=== PATIENT | male | born 1955 | race Two or more races ===

== ENCOUNTER 2018-06-30 12:25 | Inpatient (IN) | payer OTHER ==
[~2018-06-30] VITALS: Ht 185.4 cm; Wt 149.2 kg
--- NOTE | 2018-06-30 12:34 | NUR ---
TO TX AREA VIA W/C.
--- NOTE | 2018-06-30 12:35 | NUR ---
PT BROUGHT IN BY SELF WITH C/O ABDOMINAL PAIN AND POSSIBLE CONSTIPATION. AT BEDSIDE PT IS AAOX4. RESPS E/U. SKIN IS PINK, WARM AND DRY. PERRLA. PT PLACED ON MONITOR. BED RAILS UP X1 FOR SAFETY. PT ORIENTED TO ROOM, USE OF CALL LEIVA AND BED IN LOWEST POSITION. PT IS CALM AND COOPERATIVE. PT AMBULATED FROM LOBBY TO ED WITH STEADY GAIT.
--- NOTE | 2018-06-30 12:37 | NUR ---
ED PHYSICIAN AT BEDSIDE FOR PATIENT EVALUATION. MEDICAL SCREENING EXAMINATION COMPLETED BY ED PHYSICIAN DR. CAMPOS.
--- NOTE | 2018-06-30 12:50 | NUR ---
TO CT VIA [facility].
--- NOTE | 2018-06-30 13:03 | NUR ---
BACK FROM CT.
[2018-06-30 13:07] LABS: PLATELET COUNT 339 x10^3mcL (130-400)
[2018-06-30 13:32] LABS: CALCIUM 8.5 mg/dL (8.5-10.1); CARBON DIOXIDE 27.1 mmol/L (21-32); CREATININE SERUM 1.8 mg/dL (0.7-1.3)
[2018-06-30 13:38] LABS: BILIRUBIN TOTAL 1.05 mg/dL (0.20-1.00); RED CELL DISTRIBUTION WIDTH 17.3 % (11.5-14.5)
[2018-06-30 13:40] LABS: ALBUMIN 3.3 g/dL (3.4-5.0); TOTAL PROTEIN, SERUM 8.3 g/dL (6.4-8.2)
[2018-06-30 14:10] LABS: BAND NEUTROPHIL 4 % (0-10); MONOCYTE 8 % (0-7); SEGMENTED NEUTROPHILS 79 % (37-75)
[2018-06-30 14:11] LABS: PLATELET MORPHOLOGY PLATELETS NORMAL; rbc morphology (normal/abnorm) NORMAL (NORMAL)
--- NOTE | 2018-06-30 14:19 | NUR ---
1ST BOLUS OF 2 COMPLETE BP NOW 133/76 AM=186 SP02 96% ON RA. 2ND BOLUS STARTED.
--- NOTE | 2018-06-30 14:28 | NUR ---
PT OR DO NOT RECALL MEDS FOR MED REC HE STATES "I TAKE ONE TO PEE."
[2018-06-30 15:33] LABS: MAGNESIUM 1.6 mg/dL (1.8-2.4); PHOSPHOROUS 2.4 mg/dL (2.5-4.9)
--- NOTE | 2018-06-30 15:42 | NUR ---
PT IS STILL UNABLE TO VOID. PT RESTING IN POSITION OF COMFORT.
--- NOTE | 2018-06-30 15:45 | NUR ---
REPORT HAND-OFF TO RN EVERETTIN ON TELE UNIT TO ASSUME CARE.
--- NOTE | 2018-06-30 16:00 | NUR ---
RECEIVED PT FROM ED VIA [facility], CAME IN DUE TO ABDOMINAL PAIN X3 DAYS AND DIARRHEAL EPISODE. AAOX4. DENIES HEADACHE/DIZZINESS. ABLE TO FOLLOW COMMANDS. MILD SOB NOTED, O2 SAT=95%, RA. WHEEZES NOTED ON THE RIGHT SIDE OF THE LUNG. DENIES CHEST PAIN/PRESSURE, SINUS TACHYCARDIA ON THE MONITOR, HR AT 120. C/O 8/10 RIGHT ABDOMINAL PAIN DESCRIBED SHARP. LAST BM TODAY=DIARRHEA. ABDOMEN IS DISTENDED AND FIRM. BOWEL SOUNDS ACTIVE. ABLE TO PASS GAS. VOIDS FREELY. IV SITES ON THE LEFT HAND AND RAC ARE PATENT AND INTACT. SIDE RAILS UPX2. CALL LIGHT ON REACH. BEDSIDE REPORT GIVEN TO PRIMARY NURSE EVERETTIN FOR CONTINUITY OF CARE
[2018-06-30 16:07] VITALS: BP 109/84
--- NOTE | 2018-06-30 16:27 | NUR ---
STATED ABDOMINAL PAIN IS 8/10 ON PAIN SCALE, MORPHINE 2MG IVP GIVEN, NO ADVERSE REACTION NOTED. IVF NS INFUSING WELL TO LT HAND IV SITE. S/L TO RAC PATENT AND INTACT. KEPT NPO, PATIENT MADE AWARE. URINAL AT BEDSIDE PROVIDED. CALL LIGHT PLACED WITHIN EASY REACH, SIDERAILS UP X2.
[2018-06-30] MEDS ORDERED: FLO4 PO (17:38)
[2018-06-30] MEDS ORDERED: LISINOPRIL40 MG PO (17:39)
--- NOTE | 2018-06-30 17:52 | NUR ---
DOCTOR PASCALE BLANKENSHIP AT BEDSIDE STATED THAT SURGERY WILL BE DONE TONIGHT. PATIENT AND PATIENT'S SPOUSE VERBALIZED UNDERSTANDING.
--- NOTE | 2018-06-30 18:00 | NUR ---
EVELINE BENITEZ PROVIDED, ASSISTED BY PATIENT'S SPOUSE. CONSENT FOR LAPAROSCOPIC POSSIBLE OPEN CHOLECHYSTECTOMY, POSSIBLE CHOLANGIOGRAM SIGNED BY PATIENT WHO IS AWAKE, ALERT, ORIENTED TO PERSON, PLACE, TIME AND SITUATION.
[2018-06-30 18:26] LABS: UA SPECIFIC GRAVITY 1.015 (1.005-1.035); microscopic required? YES
[2018-06-30 18:27] LABS: urine erythrocyte NEGATIVE (NEGATIVE)
[2018-06-30 18:34] LABS: AMPHETAMINE QUAL UR NONE DETECTED (See below)
--- NOTE | 2018-06-30 18:34 | NUR ---
REPORT GIVEN VIA PHONE TO OR NURSE.
--- NOTE | 2018-06-30 18:52 | NUR ---
OFF FLOOR TO OR.
--- NOTE | 2018-06-30 19:15 | NUR ---
RECEIVED REPORT FROM PREVIOUS SHIFT NURSE. PT CURRENTLY IN OR FOR PROCUEDURE. WILL ASSUME CARE UPON PT ARRIVAL.
--- NOTE | 2018-06-30 21:20 | NUR ---
RECEIVED CALL FROM OR THAT PT WILL BE TRANSFERRED TO ICU.
[2018-06-30 21:40] VITALS: BP 188/99
--- NOTE | 2018-06-30 21:40 | NUR ---
RECEIVED PATIENT FROM OR ACCOMPANIED BY DR. WEI AND OR NURSE, S/P LEILA HALLMAN, INTUBATED. JOAQUIN DRAIN NOTED ON THE RIGHT UPPER QUAD, WITH FOUR SURGICAL WOUNDS COVERED WITH LARGE BANDAGES, NO VISIBLE EVIDENCE OF BLEEDING, PATIENT IS DROWSY, PANDEY CATHETER WITH SCANT URINE OUTPUT,IVF NS AT 100ML PER HOUR, PATIENT IS PROFUSELY SWEATING, PERIPHERAL IV SITE PATENT AND INTACT.
[2018-06-30 22:00] VITALS: BP 153/112; BP 188/99
--- NOTE | 2018-06-30 22:03 | NUR ---
PROPOFOL GTT INITIATED AT THIS TIME @ 10 MCG/KG/MIN TO ACHIEVE RSS=4. PT RSS=1 AT THIS TIME.
--- NOTE | 2018-06-30 22:19 | NUR ---
PROPOFOL TITRATED TO 15 MCG/KG/MIN. RSS=1 AT THIS TIME, PT EYES OPEN, ARMS MOVING.
--- NOTE | 2018-06-30 22:50 | NUR ---
PROPOFOL TITRATED TO 20 MCG/KG/MIN, RSS=1 AT THIS TIME, PT AWAKE, EYES OPEN AND ARMS MOVING AGAINST SIDE RAILS.
--- NOTE | 2018-06-30 22:54 | NUR ---
FIO2 DECREASED TO 30% ON THE VENT SETTING.
--- NOTE | 2018-06-30 23:10 | NUR ---
IVF RATE CHANGED TO 130ML/HR ORDERED.
[2018-06-30 23:25] LABS: BILIRUBIN TOTAL 1.11 mg/dL (0.20-1.00); CALCIUM 7.4 mg/dL (8.5-10.1); CARBON DIOXIDE 23.9 mmol/L (21-32); CREATININE SERUM 2.4 mg/dL (0.7-1.3); POTASSIUM SERUM 4.9 mmol/L (3.5-5.1); TOTAL PROTEIN, SERUM 7.5 g/dL (6.4-8.2)
[2018-06-30 23:27] LABS: ALBUMIN 2.8 g/dL (3.4-5.0)
[2018-07-01] VITALS (18 sets, daily range): BP systolic 102–137; BP diastolic 60–85; Ht 185.4 cm; Wt 149.2 kg
--- NOTE | 2018-07-01 00:36 | NUR ---
REMAINED INTUBATED, AROUSABLE, PROPOFOL AT 20MCG/KG/MIN, UVF INFUSING AT 130 ML/HR, URINE OUTPUT REMAINED SCANT, JOAQUIN DRAIN WITH SEROSANGUINOUS DRAINAGE, VITAL SIGNS STABLE.
--- NOTE | 2018-07-01 04:56 | NUR ---
PATIENT COMPLAINED OF SHARP PAIN IN THE ABDOMINAL AREA. MEDICATED WITH DILAUDID 1 MG AT 0417. VITAL SIGNS REMAINED STABLE, AROUSABLE, URINE OUTPUT IS ABOUT 30ML/HR, JOAQUIN DRAIN IS MINIMAL, SEROSANGUINOUS, NO BLEEDIMG FROM THE SURGICAL SITES.
[2018-07-01 05:05] LABS: BASOPHIL % 0.5 % (0-2); PLATELET COUNT 284 x10^3mcL (130-400)
[2018-07-01 05:06] LABS: RED CELL DISTRIBUTION WIDTH 15.9 % (11.5-14.5)
[2018-07-01 05:19] LABS: MAGNESIUM 1.7 mg/dL (1.8-2.4); PHOSPHOROUS 3.5 mg/dL (2.5-4.9)
--- NOTE | 2018-07-01 07:22 | NUR ---
BEDSIDE REPORT GIVEN TO DAY NURSE, ALL CONCERNS ADDRESSED.
--- NOTE | 2018-07-01 07:26 | NUR ---
RECEIVED PT FROM LEAVING NURSE. PT IS INTUBATED ON PCV MODE. PT IS SEDATED ON PROPOFOL AT 20MCG/KG/MIN. PT HAD JOAQUIN DRAIN IN PLACE, SERO SANGUNEOUS DRAINAGE. PANDEY IN PLACE, DRAINING FREELY VIA GRAVITY. URINE COLOR TABITHA. IV NS IS INFUSING AT 130ML/HR. PT'S AT BED SIDE.
--- NOTE | 2018-07-01 08:20 | NUR ---
PROVIDED VAP CARE TO PT, BITE BLOCK REMOVED, EDUCATED PT TO NOT BITE ON ETT TUBE, PT GESTURED UNDERSTANDING. PER DR. WHITESIDE TO INCREASE PROPOFOL TO ACHIEVE RSS 4. INCREASED PROPOFOL FROM 20MCG/KG/MIN TO 30MCG/KG/MIN TO ACHIEVE RSS4.
--- NOTE | 2018-07-01 08:22 | NUR ---
PER DR WHITESIDE CHANGED RR TO 16, PEEP TO 5, AND IPS TO 30. WILL MONITOR.
--- NOTE | 2018-07-01 08:33 | NUR ---
OGT PLACED AT THIS TIME. AIR BOLUS AUSCULTATED AND KUB ORDERED FOR CONFIRMATION. PT TOLERATED WELL.
--- NOTE | 2018-07-01 08:50 | NUR ---
CXR AT BEDSIDE.
--- NOTE | 2018-07-01 08:57 | NUR ---
SPOKE WITH DR. RODGERS AND UPDATED ON PT'S PROGRESS THROUGH STRIKE OUT MACHINE OPERATOR. UPDATED ON LABS AND JOAQUIN DRAIN OUTPUT. NO NEW ORDERS AT THIS TIME
--- NOTE | 2018-07-01 09:30 | NUR ---
DR. KELLY, RESIDENTS AND QUALITY AND RELIABILITY ENGINEER AT BEDSIDE FOR ROUNDING. STATUS UPDATES PROVIDED AND QUESTIONS ADDRESSED.
--- NOTE | 2018-07-01 10:10 | NUR ---
PER DR. WHITESIDE TO DECREASE SEDATION TO PREPARE FOR CPAP, LOWERED PROPOFOL TO 20MCGG/KG/MIN. WILL CONTINUE TO MONITOR.
--- NOTE | 2018-07-01 10:32 | NUR ---
PT IS NOT ABLE TO FOLLOW VERBAL COMMANDS, LOWERED SEDATION TO 10MCG/KG/MIN TO ACHIEVE RSS 4 FOR CPAP.
--- NOTE | 2018-07-01 11:14 | NUR ---
PT IS UNABLE TO TOLERATE WEANING ON CPAP. RT SWITCHED PT BACK TO VENT PCV MODE. PT IS AWAKE, FOLLOW SIMPLE COMMAND. PT'S AT BED SIDE. PROPOFOL INFUSING AT 10MCG/KG/MIN.
--- NOTE | 2018-07-01 11:19 | NUR ---
TRIED CPAP TRIAL PT UNABLE TO TOLERATED. WILL MONITOR.
--- NOTE | 2018-07-01 11:41 | NUR ---
PT IS MORE AWAKE, INCREASE PROPOFOL TO 20MCG/KG/JERAD. PT'S AT BED SIDE.
--- NOTE | 2018-07-01 12:58 | NUR ---
PT IS AWAKE, ALERT, AND GESTURED COMMUNICATE AND MAKE HIS NEEDS KNOW. INCREASED PT'S SEDATION PROPOFOL TO 30MCG/KG/MIN.
--- NOTE | 2018-07-01 18:00 | NUR ---
VITAL AF 1.2 SET AT 10ML/HR FWF 100ML/ Q6HRS PER ORDER.
--- NOTE | 2018-07-01 18:15 | NUR ---
PT'S RSS 3, PROPOFOL AT 20MCG/KG/MIN INCREASED PROPOFOL TO 30MCG/KG/MIN TO ACHIEVE RSS4.
--- NOTE | 2018-07-01 19:19 | NUR ---
RECEIVED REPORT FROM DALE GRANADOS FOR CONTINUITY OF CARE. ALL QUESTIONS AND CONERNS ADDRESSED. PT IS SEDATED AND INTUBATED ON PROPOFOL AT 30 MCG/KG/MIN. PT BREATHING IS E/U ON VENT. ASSESSMENT TO FOLLOW.
--- NOTE | 2018-07-01 19:32 | NUR ---
REPORT GIVEN TO COMING NURSE. PT'S AT BED SIDE. START PT ON TUBE FEEDING VITAL AF 1.2 10ML/HR WFW 100 Q6H. QUESTIONS AND CONCERNS ANSWERED.
--- NOTE | 2018-07-01 21:40 | NUR ---
RT AT BEDSIDE PROVIDING BREATHING TREATMENT.
--- NOTE | 2018-07-01 23:24 | NUR ---
PT C/O OF ABDOMINAL PAIN. 08/10. WILL MEDICATE PER EMAR.
[2018-07-02] VITALS (13 sets, daily range): BP systolic 110–161; BP diastolic 60–94
--- NOTE | 2018-07-02 01:40 | NUR ---
VITAL AF INFUSION ADVANCED FROM 10 ML/HR TO 20 ML/HR
--- NOTE | 2018-07-02 02:31 | NUR ---
PT HAD MODERATE LOOSE BM. PT CLEANED AND LINENS CHANGED.
--- NOTE | 2018-07-02 03:40 | NUR ---
RT AT BEDSIDE PROVIDING BREATHING TREATMENT.
--- NOTE | 2018-07-02 04:19 | NUR ---
PT MOVED ARM AND IV WAS PULLED OUT FROM RIGHT FA.
[2018-07-02 05:22] LABS: CALCIUM 7.4 mg/dL (8.5-10.1); CARBON DIOXIDE 23.4 mmol/L (21-32); CREATININE SERUM 1.9 mg/dL (0.7-1.3); MAGNESIUM 2.1 mg/dL (1.8-2.4); PHOSPHOROUS 3.4 mg/dL (2.5-4.9); POTASSIUM SERUM 3.7 mmol/L (3.5-5.1)
[2018-07-02 05:32] LABS: BASOPHIL % 0.1 % (0-2); PLATELET COUNT 258 x10^3mcL (130-400); RED CELL DISTRIBUTION WIDTH 17.4 % (11.5-14.5)
--- NOTE | 2018-07-02 06:06 | NUR ---
PROPOFOL TITRATED FROM 30 MCG/KG/MIN TO 25 MCG/KG/MIN.
--- NOTE | 2018-07-02 07:00 | NUR ---
PROPOFOL TITRATED TO 30 MCG/KG/MIN
--- NOTE | 2018-07-02 07:21 | NUR ---
TUBE FEEDING ADVANCED TO 30 ML/HR
--- NOTE | 2018-07-02 07:24 | NUR ---
REPORT GIVEN TO DALE CARY FOR CONTINUITY OF CARE. ALL QUESTIONS AND CONCERNS ADDRESSSED.
--- NOTE | 2018-07-02 07:30 | NUR ---
THE PATIENT REMAINED INTUBATED AND SEDATED WITH PROPOFOL AT 30MCG/KG/MIN. THE PATIENT RESPONSIVE TO COMMANDS AND GESUTRED TO MAKE NEEDS KNOWN. SHELLEY PUPILS WITH BRISK REACTION TO LIGHT. ETT 7.5 WAS SECURED AT 23CM AT LIPLINE. OGT WAS IN PLACE AND SECURED TO ETT. OGT PLACEMENT WAS VERIFIED WITH SOME AIR BOLUS. ORAL CARE WAS PROVIDED TO THE PATIENT. ETT TO VENT VIA PCV MODE WITH SETTING: FIO2 30%, RATE 16, PEEP 5, AND PRESSURE SUPPORT 30. BREATHING WAS EVEN/UNLABORED. TUBE FEEDING WITH VITAL AF AT 30ML/HR. RESIDUAL 5ML AND REPLACED. TELE # 4 READS SINUS TACHYCARDIA. ABDOMINAL INCISIONS X4 COVERED WITH BANDAIDS INTACT. JOAQUIN TO RIGHT ABDOMEN WITH SCANT AMOUNT OF YELLOWISH DRAINAGE. PANDEY CATH TO GRAVITY DRAINING YELLOW URINE. CALL LIGHT WITHIN REACH. SIDE RAILS UP X3. BED WAS AT LOWEST POSITION. HEAD OF BED ELEVATED 35 DEGREES, AND BLE WERE ELEVATED ON A PILLOW. FAMILY WAS AT BEDSIDE.
--- NOTE | 2018-07-02 08:00 | NUR ---
PROPOFOL WAS TITRATED FROM 30MCG/KG/MIN TO PREPARE FOR CPAP TRIAL.
--- NOTE | 2018-07-02 08:30 | NUR ---
PROPOFOL WAS TITRATED FROM 20MCG/KG/MIN DOWN TO 10MCG/KG/MIN.
--- NOTE | 2018-07-02 09:00 | NUR ---
PROPOFOL WAS HELD FOR CPAP TRIAL.
--- NOTE | 2018-07-02 09:12 | NUR ---
DR. BLANKENSHIP IN TO SEE THE PATIENT.
--- NOTE | 2018-07-02 09:25 | NUR ---
THE RT WAS AT BEDSIDE SWITCHING THE VENT MODE TO CPAP 12/5.
--- NOTE | 2018-07-02 12:00 | NUR ---
TUBE FEEDING WAS HELD FOR WEANING PROCESS.
--- NOTE | 2018-07-02 12:25 | NUR ---
SPOKE WITH DR WHITESIDE AND REPORTED RECENT ABG'S AND WEANING PARAMETERS. NIF= 38, RSBI 28. NEW ORDERS RECEIVED TO EXTUBATE PATIENT.
--- NOTE | 2018-07-02 13:00 | NUR ---
JANNETH BENAVIDES, PRIMARY RN ROCKY AND MYSELF AT BEDSIDE FOR PATIENT EXTUBATION. SEDATION REMAINS OFF. PATIENT EXTUBATED AND PLACED ON NASAL CANNULA 3 LPM. VITALS: BP 147/66, MAP 96, RR 15, HR 110, SPO2 96%. WILL MONITOR PATIENT CLOSELY.
--- NOTE | 2018-07-02 13:16 | NUR ---
B/P 121/56 MAP 75 HR 112 LOWERED LEVOPHED FROM 8MCG/KG/MIN TO 6MCG/KG/MIN TO ACHIEVE MAP 65.
--- NOTE | 2018-07-02 16:05 | NUR ---
THE PATIENT C/O DRY MOUTH; SOME ICE CHIPS WERE PROVIDED TO THE APTIENT AND THE PATIENT HAD NO DIFFICULTY WITH ICE CHIPS.
--- NOTE | 2018-07-02 16:30 | NUR ---
PATIENT C/O PAIN 7/10 TO ABDOMINAL SURGICAL SITE. ADMINISTER 30 MG TORADOL IVP FOR PAIN. WILL REASSESS FOR EFFECTIVENESS.
--- NOTE | 2018-07-02 17:27 | NUR ---
LISINOPRIL 40MG PO AND FLOMAX 0.4MG PO WERE ORDERED FOR THE PATIENT. THE MEDS WERE MEDICATED TO THE PATIENT WITH SOME SIPS OF WATER; THE PATIENT SWALLOWED WATER WITHOUT DIFFICULTY/PROBLEM.
--- NOTE | 2018-07-02 18:19 | NUR ---
PANDEY CARE WAS PROVIDED TO THE PATIENT EARLIER. JOAQUIN DRAIN WITH 10ML OF PINKISH YELLOW OUTPUT. THE PATIENT WAS RESTING IN BED AT THIS TIME WATCHING TV WITH NO DISTRESS. O2 SAT>94% WHILE THE PATIENT WAS ON OXYGEN AT 3L/MIN VIA NASAL CANNULA. THE WAS AT BEDSIDE MOST OF THE TIMES.
--- NOTE | 2018-07-02 18:50 | NUR ---
THE PATIENT HAD BM WITH UNFORMED STOOL. PATIENT WAS CLEANSED AND CHANGED.
--- NOTE | 2018-07-02 19:20 | NUR ---
RECEIVED REPORT FROM DALE CARY FOR CONTINUITY OF CARE. ALL QUESTIONS AND CONCERNS ADDRESSED. PT IS AWAKE AND ALERT. BREATHING IS E/U. ASSESSMENT TO FOLLOW.
--- NOTE | 2018-07-02 19:47 | NUR ---
PT C/O OF PAIN, RATING 6/10. WILL MEDICATE PER EMAR.
--- NOTE | 2018-07-02 22:30 | NUR ---
RT AT BEDSIDE. RT NOTIFIED THAT PT REFUSED BIPAP.
[2018-07-03 03:28] VITALS: BP 135/73
--- NOTE | 2018-07-03 04:52 | NUR ---
PT C/O OF PAIN 07/10. WILL MEDICATE PER EMAR.
[2018-07-03 05:26] LABS: BASOPHIL % 0.6 % (0-2); PLATELET COUNT 278 x10^3mcL (130-400)
[2018-07-03 05:30] LABS: RED CELL DISTRIBUTION WIDTH 17.9 % (11.5-14.5)
[2018-07-03 05:41] LABS: CARBON DIOXIDE 24.7 mmol/L (21-32); CREATININE SERUM 1.5 mg/dL (0.7-1.3); MAGNESIUM 2.3 mg/dL (1.8-2.4); PHOSPHOROUS 3.1 mg/dL (2.5-4.9)
--- NOTE | 2018-07-03 07:10 | NUR ---
REPORT RCD FROM DALE NAVARRO. PATIENT AWAKE, ALERT, NO DISTRESS NOTED. NS 75 ML/HR TO RIGHT HAND. PANDEY IN PLACE DRAINING YELLOW URINE TO GRAVITY. 2.5 L NASAL CANNULA, SATTING 95%. JOAQUIN DRAIN IN PLACE WITH SMALL AMOUNT OF SEROSANGUINEOUS DRAINAGE, 5 ML REPORTED OVERNIGHT BY NOC. SURGICAL BANDAIDS IN PLACE X4 TO ABDOMEN POST CHOLECYSTECTOMY 06/30/18, CDI. SHIFT ASSESSMENT PERFORMED AND DOCUMENTED. PATIENT REPORTS ABDOMINAL PAIN WITH MOVEMENT 7/10, LESS IF HE LAYS STILL. DISCUSSED PAIN MEDICATION, PAIN CONTROL. PATIENT OKAY AT THIS TIME. WILL MONITOR.
[2018-07-03 07:15] VITALS: BP 146/81
[2018-07-03 08:02] VITALS: BP 135/73
--- NOTE | 2018-07-03 09:10 | NUR ---
PATIENT HAD BM, LOOSE STOOL. PATIENT CLEANED UP AND POSITIONED FOR COMFORT. LEGS SUPPORTED ON PILLOWS. NO OTHER NEEDS AT THIS TIME.
--- NOTE | 2018-07-03 09:47 | NUR ---
MD ROUNDS WITH DR. KELLY, MEDICAL TEAM, [facility] NURSE, ATTDG NURSE. PATIENT REPORTS PAIN TO ABDOMEN IS "A LITTLE". DISCUSSED PLAN TO TRANSFER TO MED/SURG/TELE. PATIENT AGREEABLE.
--- NOTE | 2018-07-03 11:21 | NUR ---
REPORT CALLED TO DALE LUCIA ON . PATIENT BEING TRANSFERRED TO [facility].
--- NOTE | 2018-07-03 11:36 | NUR ---
MEDICATED WITH NORCO PER MAY FOR 6/10 ABDOMINAL PAIN, ESPECIALLY WITH MOVING, POST OP. BLOOD SUGAR 153, REGULAR INSULIN 3 UNITS PER MAY. EMPTIED 550 ML YELLOW URINE FROM PANDEY.
--- NOTE | 2018-07-03 12:10 | NUR ---
PATIENT TAKEN VIA BED TO ROOM 221B FROM ICU 4. PATIENT ABLE TO TRANSFER SELF BETWEEN BEDS. O2 3L NC PLACED. PATIENT ORIENTED TO ROOM AND CALL LIGHT. INTRODUCED TO DALE LUCIA. BED LOW. PATIENT IN NO ACUTE DISTRESS. CARE ENDORSED. TELE 20.
--- NOTE | 2018-07-03 12:10 | NUR ---
PT BROUGHT UP TO FLOOR BY BED FROM ICU. PT AWAKE, ALERT A/OX4. PT ON 2L NC WITH SOME SOB NOTED. O2 SAT 92%. IV ACCESS RIGHT HAND INFUSING NS AT 75ML/HR. C/D/I. PT HAS 4 SURGICAL BANDAIDS C/D/I. ACTIVE BOWEL SOUNDS NOTED. PT REPORTS PAIN 4/10 AT THIS TIME. PT HAS JOAQUIN DRAIN TO ABDOMEN DRAINING SERO SANGUINOUS FLUID. PT HAS PANDEY CATH WITH CLEAR YELLOW URINE DRAINING. PT ORIENTED TO ROOM, SAFETY MEASURES IN PLACE, BED LOW AND LOCKED. CALL LIGHT WITHIN REACH.
[2018-07-03 13:30] VITALS: BP 148/83
[2018-07-03 17:17] VITALS: BP 149/56
--- NOTE | 2018-07-03 18:07 | NUR ---
REMOVED PANDEY CATHETER. PT HAD SEVERAL URGES TO URINATE DURING BLADDER TRAINING EARLY INTO TRAINING. PANDEY EMPTIED 700ML DARK YELLOW URINE. PT HAS URINAL AT BEDSIDE. WILL MONITOR.
--- NOTE | 2018-07-03 18:59 | NUR ---
PT STABLE AT THIS TIME. ALL NEEDS TENDED TO THROUGHOUT SHIFT. NO ACUTE DISTRESS OR DISCOMFORT NOTED AT THIS TIME. WILL CONTINUE TO MONITOR AND ENDORSE TO TECHNICAL ASSISTANT.
--- NOTE | 2018-07-03 19:30 | NUR ---
PT SEEN, RESTING IN BED WITH HOB @ 45 DEGREES, ALERT AND ORIENTED X 4, DENIES HEADACHE OR DIZZINESS, MILD SOB ON EXERTION, LUNG SOUNDS DIMINISHED, ON O2 3.5 LITERS VIA NC WITH HUMIDIFIER, ON AND OFF DRY COUGH, I.S AT BEDSIDE AND PT ABLE TO REACH 1000 ML, PULSES PALPABLE, NO EDEMA NOTED, GENERALIZED WEAKNESS, AMBULATORY WITH WALKER AND ASSIST, ABD ROUND, DISTENDED BUT SOFT WITH ACTIVE BS, S/P LAP VIJI WITH 4 SURGICAL INCISIONS TO ABD COVERING WITH LARGE BANDAGES, NO ACTIVE BLEEDING NOTED, JOAQUIN DRAINING SEROSANGUINEOUS OUTPUT, VOIDING FREELY AFTER PANDEY DC'D BY DAY SHIFT NURSE @ 6PM, AT BEDSIDE, NO DISTRESS NOTED, WILL KEEP TO MONITOR.
--- NOTE | 2018-07-03 19:38 | NUR ---
DR PASCALE BLANKENSHIP IS HERE, ALL UPDATES GIVEN, DR BLANKENSHIP REQUESTED NURSE TO MEDICATE PT WITH MORPHINE 4MG VIA IVP PRIOR DC JOAQUIN DRAIN, MEDS ADMINISTERED PER MD ORDER, SUTURE REMOVAL KIT, GAUZE AND TAPE PREPARED AT BEDSIDE.
--- NOTE | 2018-07-03 19:45 | NUR ---
JOAQUIN MALIK DC'Mikey BY DR PASCALE BLANKENSHIP JP SITE COVERED BY 4*4 GAUZE AND FOLLOWED BY TAPE.
[2018-07-03 21:15] VITALS: BP 133/61
[2018-07-04 05:48] VITALS: BP 151/84
--- NOTE | 2018-07-04 05:58 | NUR ---
PT AWAKE AT THIS TIME, SLEPT ON AND OFF WHOLE NIGHT, MEDICATED WITH MORPHINE X 2 FOR PAIN TO INCISION SITE, WITH GOOD RELIEF, IVF INFUSING WELL, BREATHING EVEN AND UNLABORED ON O2 3.5L VIA NC, MORNING BLOOD SUGAR-109 MG/DL WITH NO RISS, C/O OF PAIN TO INCISION SITE THIS MORNING, NORCO PO X 1 GIVEN, NO DISTRESS NOTED, WILL KEEP TO MONITOR.
[2018-07-04 06:24] LABS: BASOPHIL % 0.6 % (0-2); PLATELET COUNT 292 x10^3mcL (130-400)
[2018-07-04 06:50] LABS: BILIRUBIN TOTAL 0.52 mg/dL (0.20-1.00); CALCIUM 8.4 mg/dL (8.5-10.1); CARBON DIOXIDE 28.7 mmol/L (21-32); CREATININE SERUM 1.3 mg/dL (0.7-1.3); MAGNESIUM 2.1 mg/dL (1.8-2.4); POTASSIUM SERUM 4.3 mmol/L (3.5-5.1); TOTAL PROTEIN, SERUM 7.2 g/dL (6.4-8.2)
[2018-07-04 06:53] LABS: RED CELL DISTRIBUTION WIDTH 17.5 % (11.5-14.5)
[2018-07-04 07:03] LABS: ALBUMIN 2.3 g/dL (3.4-5.0)
--- NOTE | 2018-07-04 07:55 | NUR ---
PT EATING, WILL CALL FOR TX
[2018-07-04 09:06] VITALS: BP 164/81
--- NOTE | 2018-07-04 12:00 | NUR ---
C/O 7/10 SHARP PAIN TO ABD/INCISION AREAS FROM PASSING BM. PRN MEDICATION PROVIDED, SEE MAR FOR DETAILS.
--- NOTE | 2018-07-04 13:40 | NUR ---
PT BECAME TACHYCARDIC/SVT. ASSESSED PT AND HE IS ASYMPTOMATIC. RESTING COMFORTABLY IN BED. BREATHING E/U. TITRATED O2 TO 4L. DENIES CP. DENIES PAIN OR DISCOMFORT AT THIS TIME. AOX4.
[2018-07-04 13:42] VITALS: BP 149/91
--- NOTE | 2018-07-04 13:55 | NUR ---
COURT WINDOWS TECHNICAL SPECIALIST MADE AWARE OF CHANGE IN RHYTHM. DR PEREIRA TO BE CONSULTED.
--- NOTE | 2018-07-04 14:48 | NUR ---
CONVERTED SPONTANEOUSLY BACK TO NSR. HR 99. RESTING COMFORTABLY IN BED. NAD.
--- NOTE | 2018-07-04 16:36 | NUR ---
TITRATED O2 TO 4L NC. SPO2:97%. NO RESP DISTRESS NOTED. WILL CONT.TO MONITOR
--- NOTE | 2018-07-04 17:00 | NUR ---
RESTING COMFORTABLY IN BED WATCHING TV. NAD. DENIES SOB/CP/PAIN.
[2018-07-04 17:48] VITALS: BP 148/76
--- NOTE | 2018-07-04 19:29 | NUR ---
PT SEEN, RESTING IN BED WITH HOB @ 45 DEGREES, ALERT AND ORIENTED X 4, DENIES HEADACHE OR DIZZINESS,SOB ON EXERTION, LUNG SOUNDS DIMINISHED, ON O2 3.5 LITERS VIA NC WITH HUMIDIFIER, ON AND OFF DRY COUGH, I.S AT BEDSIDE AND PT ABLE TO BETWEEN 500ML TO 1000 ML, PULSES PALPABLE, NO EDEMA NOTED, GENERALIZED WEAKNESS, AMBULATORY WITH WALKER AND ASSIST, ABD OBESE, DISTENDED BUT SOFT WITH ACTIVE BS, S/P LAP VIJI WITH 4 SURGICAL INCISIONS TO ABD COVERING WITH LARGE BANDAGES, JOAQUIN REMOVED SITE WITH STEFFANIE, C/D/I, VOIDING FREELY, AT BEDSIDE, NO DISTRESS NOTED, WILL KEEP TO MONITOR.
[2018-07-04 20:24] VITALS: BP 151/85
--- NOTE | 2018-07-04 21:09 | NUR ---
PT COMPLAINING OF 7/10 PAIN IN THE ABDOMINAL AREA. REQUESTING FOR PAIN MEDICATION. SEE MAR FOR DETAILS.
--- NOTE | 2018-07-04 23:58 | NUR ---
PT DECLINED HHN TX AT THIS TIME, WANTED TO SLEEP.
--- NOTE | 2018-07-05 03:50 | NUR ---
PT HAD BM, TOTAL BED BATH GIVEN, LINENS CHANGED, PT NOTED WITH SOB ON EXERTION AND WITH EXP WHEEZING, BLADDERS SCAN DONE WITH ONLY LESS 100 ML URINE, DR LUNA MADE AWARE, NEW ORDER RECEIVED FOR BNP IN AM.
[2018-07-05 05:25] VITALS: BP 151/90
--- NOTE | 2018-07-05 05:25 | NUR ---
PT AWAKE AND RESTING IN BED, SLEPT ON AND OFF WHOLE NIGHT, MEDICATED NORCO PO X 2 FOR ABD PAIN WITH GOOD RELIEF, PT HAD 1 BM DURING THE SHIFT, IVF INFUSING WELL, SOB ON EXERTION, RT PROTOCOL, AT BEDSIDE, NO DISTRESS NOTED, WILL KEEP TO MONITOR.
[2018-07-05 06:54] LABS: CALCIUM 8.4 mg/dL (8.5-10.1); CARBON DIOXIDE 31.6 mmol/L (21-32); CHLORIDE SERUM 101 mmol/L (98-107); CREATININE SERUM 1.2 mg/dL (0.7-1.3); GFR1 > 60 mL/min; GLUCOSE SERUM 127 mg/dL (74-106); POTASSIUM SERUM 4.3 mmol/L (3.5-5.1); SODIUM SERUM 138 mmol/L (136-145)
[2018-07-05 07:07] LABS: BASOPHIL % 0.5 % (0-2); PLATELET COUNT 297 x10^3mcL (130-400)
[2018-07-05 07:13] LABS: RED CELL DISTRIBUTION WIDTH 17.5 % (11.5-14.5)
--- NOTE | 2018-07-05 07:20 | NUR ---
RECEIVED PATIENT AWAKE/ALERT, NO C/O SOB NO RESP DISTRESS NOTED. DENIES PAIN AT THIS TIME. TELE #20 NOTED. IV TO RH INTACT AND INFUSING WELL. ENCOURAGE PATIENT TO USES IS WHILE AWAKE PATIENT VERBALIZE OKAY. CALL LIGHT IN REACH.
[2018-07-05 07:22] VITALS: BP 155/80
--- NOTE | 2018-07-05 09:29 | NUR ---
PATIENT AWAKE/ALERT WATCHING TV, NO COMPLAIN. ADMINISTERED ALL PO MEDS PATIENT TOLERATED WELL. LOVENOX SQ INJECTED TO LT ARM. NEEDS ATTENDED. CALL LIGHT IN REACH.
[2018-07-05 11:07] VITALS: BP 146/80
--- NOTE | 2018-07-05 11:50 | NUR ---
Initial Nutrition Assessment Dx: Acute cholecystitis PMHx: HTN PSHx: None Labs: (07/05) BH, Ca:8.4L, H/H:10.1/31L (07/04) AST:73H, ALT:91H (06/30) A1c:8.3H Meds:Dilauded, Flomax, Humulin, Lactinex, Lopressor, Loveox, Mg oxide, Morphine, Estelline, Pepcid, NS IV, Tylenol, Zestril,. Zofran, Zosyn Diet: Full liquid PO Intake: (07/04) B:25% L:50% Ht:73in, 6'1" Wt:327#, 148.7kg BMI:43.3kg/m2 (obese) IBW:184#,84kg %IBW: 178% UBW:280# per pt Age: 62 y/o male Food Allergies:NKFA Skin:abd with incisions. Osiel: 18 Edema: None GI:active bowel sounds Last BM:07/03 Per H&P, pt came in with c/o 8/10 pressure like RUQ pain, non radiating, without any alleviating and aggravating factors. Per progress note 07/05, pt is awake and alert on 2L NC. Pt had an episode of a HR 150 per nursing staff. Cardiology was consulted. During visit, pt was seen laying in bed with no family at bedside. Pt reports to having a fair appetite with no c/o GI issues at this time. Pt states, he uses to go to the bar and drink beer and eat burritos, however, after marrying his , he eats a little bit healthier. Attempted to provide education. Problem with: N/V/D/C:No Problems with: Chewing:/Swallowing: No Current appetite: fair Recent wt change:+47# %wt change:-.17% Vitamin/Supplement use: No Special diet at home: arturo, pt's cooks for him. Physical activity: no Education: provided pt with verbal diet education on low sodium diet. Pt did not seem interested and kept changing the subject. Will attempt to re-educate at next follow up visit. Estimated Nutritional Needs Based on ideal body weight 84kg Energy: 2100-2520kcal/d (25-30kcal/kg for maintenance) Protein: 84g/d (1g/kg for mainteance) Fluid: 2100-2520ml/d (1 ml/kcal) or per doctor Nutrition Diagnosis 1. Obesity related to excessive caloric intake as evidenced by BMI:43.3kg/m2 Intervention 1. Recommedn advance diet as tolerated to low Na due to history of HTN. 2. Recommend add 1 Ensure Enlive due to PO itnake 38% x 2 meals.
--- NOTE | 2018-07-05 12:04 | NUR ---
PATIENT RESTING IN BED AWAKEN, C/O HEADACHE 08/10 ADMINISTERED NORCO 1 TAB PO AND DUE MEDS. GAVE 3 UNITS REGULAR INSULIN SQ FOR BS 164. NEEDS ATTENDED. FAMILY MEMBER AT BEDSIDE. CONT TO MONITOR. CALL LIGHT IN REACH.
--- NOTE | 2018-07-05 12:44 | NUR ---
1244 HHN TX NOT GIVEN DUE TO PT EATING. 1310 HHN TX NOT GIVEN DUE TO HAVING A BOWEL MOVEMENT
--- NOTE | 2018-07-05 12:50 | NUR ---
ECHOCARDIOGRAM PENDING-PATIENT REQUESTED TEST BE DONE LATER
--- NOTE | 2018-07-05 13:56 | NUR ---
PATIENT LAYING FLAT IN BED, TECH AT BEDSIDE PERFORM ECHO. FAMILY REMAIN AT BEDSIDE. CALL LIGHT IN REACH.
[2018-07-05 17:19] VITALS: BP 146/82
--- NOTE | 2018-07-05 18:09 | NUR ---
PATIENT SAT UP AT THE SIDE OF BED EATING HIS DINNER, FAMILY MEMBERS REMAIN AT BEDSIDE. NO C/O PAIN. IV TO RH INTACT AND PATENT. CALL LIGHT IN REACH.
--- NOTE | 2018-07-05 19:05 | NUR ---
RECEIVED PT AWAKE AND ALERTB X4. ABLE TO FOLLOW COMMANDS. RESPONDS TO VERBAL, TACTILE, AND PAINFUL STIMULUS. R EYE BLINDNESS NOTED. NO HEADACHE STATED. ON ROOM AIR. BREATHING IS EVEN AND UNLABORED. CLEAR LUNG SOUNDS AUSCULTATED ALL THROUGHOUT LOBES. NO SIGNS OF RESP DISTRESS. DENIES CP AT THIS TIME. NORMAL SINUS RHYTHM. S1/S2 HEART SOUNDS AUDIBLE. ON TELE MONITOR #23. SKIN IS WARM/DRY TO TOUCH, COLOR IS CONSISTENT WITH ETHNICITY. MOD PULSES TO BUE, WEAK TO BLE. TRACE EDEMA TO R FOOT NOTED. L TOES AMPUTATED - SMALL WOUND NOTED. R BIG TOE ERYTHEMA WITH NAIL BED REMOVED WITH DRESSING APPLIED AND CDI. ABD IS SOFT AND ROUNDED. ACTIVE BOWEL SOUNDS TO ALL 4 ABD QUAD. DENIES N/V OR ABD PAIN. VOIDS FREELY. AMBULATORY. X3 SIDE RAILS UP, BED IN LOWEST POSITION, AND CALL LIGHT WITHIN REACH.
--- NOTE | 2018-07-05 19:05 | NUR ---
RECEIVED REPORT FROM FARHAD HUNTER. UPDATES PROVIDED. WILL RESUME CARE.
--- NOTE | 2018-07-05 19:10 | NUR ---
RECEIVED PT AWAKE AND ALERT X4. ABLE TO FOLLOW COMMANDS. RESPONDS TO VERBAL, TACTILE, AND PAINFUL STIMULUS. ON 3L OXYGEN NASAL CANNULA. BREATHING EVEN AND UNLABORED. CLEAR TO BUL, AND DIMINISHED TO BLL. NO SIGNS OF RESP DISTRESS NOTED. DENIES CP AT THIS TIME. NSR. S1/S2 HEART SOUNDS AUDIBLE. NO DIZZINESS OR SYNCOPE STATED. MOD PULSES TO BUE AND BLE. CAP REFILL <3 SEC TO BUE AND BLE. SKIN IS WARM/DRY TO TOUCH, COLOR IS CONSISTENT WITH ETHNICITY. NO EDEMA NOTED. PIV TO R HAND INTACT, PORT PATENT, DRESSING CDI. NS INFUSING @ 75 ML/HR. ABD IS SOFT AND ROUNDED. ACTIVE BOWEL SOUNDS TO ALL 4 ABD QUAD. DENIES N/V AND ABD PAIN. VOIDS FREELY VIA URINAL. GENERALIZED WEAKNESS NOTED. 4 SURGICAL INCISIONS TO ABD NOTED WITH BANDAGES APPLIED AND CDI. REMOVED JOAQUIN SITE WITH 4X4 GAUZE/TAPE. X3 SIDE RAILS UP, BED IN LOWEST POSITION, CALL LIGHT WITHIN REACH. AT BEDSIDE. POC UPDATED WITH PT AND .
--- NOTE | 2018-07-05 20:45 | NUR ---
PT REFUSING TO HAVE HUMULIN REGULAR INSULIN FOR BS OF 213 DUE TO HIS [facility] MEDICATION DOSAGE OF [address] LUNA MADE AWARE. NO NEW ORDERS AT THIS TIME. WILL CONTINUE TO MONITOR.
[2018-07-05 21:02] VITALS: BP 151/72
[2018-07-06] VITALS (8 sets, daily range): BP systolic 129–165; BP diastolic 76–88
[2018-07-06 06:58] LABS: CALCIUM 8.7 mg/dL (8.5-10.1); CARBON DIOXIDE 32.9 mmol/L (21-32); CREATININE SERUM 1.3 mg/dL (0.7-1.3); POTASSIUM SERUM 4.6 mmol/L (3.5-5.1)
[2018-07-06 07:01] LABS: BASOPHIL % 0.6 % (0-2); PLATELET COUNT 311 x10^3mcL (130-400)
[2018-07-06 07:02] LABS: RED CELL DISTRIBUTION WIDTH 17.5 % (11.5-14.5)
--- NOTE | 2018-07-06 08:00 | NUR ---
SHIFT ASSESSMENT DONE. PATIENT ALERT/ORIENTED X4. CLEAR SPEECH. TELE#20, SR; HR = 104. BREATHING SOUND DIMINISHED SHELLEY BASES. O2 SAT 94% ON 3L VIA N/C. NO SOB ON RESTING IN BED. ABD ROUND/SOFT. TOLERATED FULL LIQUID DIET BREAKFAST. NO N/V. STATED HAD BM X2 THIS AM. VOID FREELY. ABD INCISIONS COVERED WITH BANDAIDS. DRY AND INTACT. NO C/O PAIN NOW. IVF OF NS 10CC/HR TO RH, IV SITE CLEAN. CALL LIGHT IN REACH.
[2018-07-06] MEDS ORDERED: TOPROL XL25 MG PO (10:09)
[2018-07-06] MEDS ORDERED: AEROECLIPSE II1 EACH MC (10:10)
[2018-07-06] MEDS ORDERED: GOOD SENSE ASPI81 M3 PO (10:10)
[2018-07-06] MEDS ORDERED: IPRATROPIUM BROM3 M2 IH (10:12)
[2018-07-06] MEDS ORDERED: GLUCOPHAGE500 MG PO (10:25)
[2018-07-06] MEDS ORDERED: ACCU-CHEK AVIV1 EACH MC (10:25)
--- NOTE | 2018-07-06 14:52 | NUR ---
B/P = 165/78; VIVEK FOFANA, NOTIFIED. SHE SAID THAT WAS OK TO D/C PATIENT TO HOME. NO NEW ORDER GIVEN.
--- NOTE | 2018-07-06 16:58 | NUR ---
PHYSICAL THERAPY DAILY NOTES CO-SIGN All documentation done by the Retail Sales Associate Bilingual for 07/06/18 has been reviewed. I agree with the documentation. Reviewed/Co-Signed by: Winnie Melendez PT Documentation Done by:LESLI GAUTHIER PTA
--- NOTE | 2018-07-06 17:31 | NUR ---
PHYSICAL THERAPY DAILY NOTES CO-SIGN All documentation done by the Industrial Hygenist for 07/06/18 has been reviewed. I agree with the documentation. Reviewed/Co-Signed by: Jt Hope PT Documentation Done by:LUCIANA DOUGLAS WET PROCESS MILLER HEAD ASSISTANT FOR 07/04/2018
--- NOTE | 2018-07-06 18:47 | NUR ---
B/P = 150/85. PATIENT STATED NO SOB ON BRP. O2 SAT 94% ON 3L VIA. RT PROTOCOL. TOLERATED FULL LIQUID DIET. HAD BM X3 THIS SHIFT. CONDITION STABLE. ENDORSED CAER TO NOC NURSE.
--- NOTE | 2018-07-06 19:00 | NUR ---
RECEIVED PT SITTING AT THE EDGE OF THE BED WITH FAMILY AT BEDSIDE.NO ACUTE DISTRESS NOTED. C/O PAIN 08/10.WILL MEDICATE ORDERED.IV SITE PATENT AND INTACT. BED IN LOWEST POSITION,CALL LIGHT WITHIN REACH. WILL CONTINUE TO MONITOR.
--- NOTE | 2018-07-06 20:25 | NUR ---
MEDICATED TORADOL 30MG IVP FOR PAIN ORDERED. WILL CONTINUE TO MONITOR.
--- NOTE | 2018-07-06 21:05 | NUR ---
PT DISCHARGED. DISCHARGED PACKET WERE GIVEN.VERBALIZED UNDERSTANDING.PORTABLE OXYGEN WERE PLACED @ 3L.PT WHEELED VIA WHEELCHAIR ACCOMPANIED BY THE CABLE STRETCHER AND TESTER AND THE . ID BADGE IV ACCESS REMOVED. TELE MONITOR WERE RETURNED.
== END 2018-07-06 21:20 | disposition home or self-care (01) | DRG 853 ==
LOC: ED 12:25 → IC 15:21 → DU 15:21 → IC 21:39 → DU 07-03 12:04
PROVIDERS: Emergency Medicine; Surgery; ADMIT Internal Medicine
PROC: 0FT44ZZ Resection of Gallbladder, Percutaneous Endoscopic Approach (ICD-10-PCS; principal; 2018-06-30 19:00)
DX: A41.9 Sepsis, unspecified organism (principal); K65.3 Choleperitonitis; N17.0 Acute kidney failure with tubular necrosis; J96.00 Acute respiratory failure, unspecified whether with hypoxia or hypercapnia; K81.0 Acute cholecystitis; Z68.41 Body mass index [BMI] 40.0-44.9, adult; E87.1 Hypo-osmolality and hyponatremia; D68.69 Other thrombophilia; E11.65 Type 2 diabetes mellitus with hyperglycemia; I10 Essential (primary) hypertension; E83.42 Hypomagnesemia; I48.0 Paroxysmal atrial fibrillation; E83.39 Other disorders of phosphorus metabolism; G47.33 Obstructive sleep apnea (adult) (pediatric); E66.01 Morbid (severe) obesity due to excess calories; Z79.84 Long term (current) use of oral hypoglycemic drugs; N40.0 Benign prostatic hyperplasia without lower urinary tract symptoms
CPT/HCPCS: 36600; 82962; 83880; 94150; 97110-GP; 97116-GP; 97530-GP; A4628; J0330; J0696; J1170; J1650; J1885; J2175; J2250; J2270; J2405; J2543; J2704; J2710; J3010; J3475; J3490; J7030; J7050; J7620; Q0092

== ENCOUNTER 2019-03-28 01:12 | Inpatient (IN) | payer OTHER ==
[~2019-03-28] VITALS: Ht 188 cm; Wt 144.2 kg
[~2019-03-28 01:12] MED LIST: ACCU-CHEK AVIV1 EACH MC; AEROECLIPSE II1 EACH MC; FLO4 PO; GLUCOPHAGE500 MG PO; GOOD SENSE ASPI81 M3 PO; IPRATROPIUM BROM3 M2 IH; LISINOPRIL40 MG PO; TOPROL XL25 MG PO
[2019-03-28 01:18] VITALS: Ht 188 cm; Wt 144.2 kg
[2019-03-28] MEDS ORDERED: ROSUVASTATIN CAL5 MG PO (01:31)
[2019-03-28 02:41] LABS: BASOPHIL % 0.3 % (0-2); PLATELET COUNT 310 x10^3mcL (130-400)
[2019-03-28 02:42] LABS: RED CELL DISTRIBUTION WIDTH 16.6 % (11.5-14.5)
[2019-03-28 03:05] LABS: CARBON DIOXIDE 32.2 mmol/L (21-32); CHLORIDE SERUM 99 mmol/L (98-107); CREATININE SERUM 1.2 mg/dL (0.7-1.3); GFR1 > 60 mL/min; GLUCOSE SERUM 201 mg/dL (74-106); POTASSIUM SERUM 5.2 mmol/L (3.5-5.1); SODIUM SERUM 136 mmol/L (136-145); TOTAL PROTEIN, SERUM 8.4 g/dL (6.4-8.2)
[2019-03-28 03:06] LABS: ALBUMIN 3.3 g/dL (3.4-5.0); ALKALINE PHOSPHATASE 97 U/L (46-116); ALT/SGPT 33 U/L (16-63); AST/SGOT 36 U/L (15-37); BILIRUBIN TOTAL 0.37 mg/dL (0.20-1.00); CALCIUM 8.5 mg/dL (8.5-10.1)
[2019-03-28 05:53] VITALS: BP 122/75
[2019-03-28 08:47] VITALS: BP 130/68
[2019-03-28 09:20] VITALS: BP 130/68
[2019-03-28 13:03] VITALS: BP 135/69
[2019-03-28 16:22] VITALS: BP 139/66
[2019-03-28 20:20] VITALS: BP 129/49
[2019-03-29 05:18] VITALS: BP 112/54
[2019-03-29 05:58] LABS: PLATELET COUNT 286 x10^3mcL (130-400)
[2019-03-29 06:05] LABS: BASOPHIL % 0 % (0-2); RED CELL DISTRIBUTION WIDTH 17.2 % (11.5-14.5)
[2019-03-29 06:47] LABS: CALCIUM 9.1 mg/dL (8.5-10.1); CARBON DIOXIDE 31.8 mmol/L (21-32); CREATININE SERUM 1.3 mg/dL (0.7-1.3); MAGNESIUM 1.9 mg/dL (1.8-2.4); POTASSIUM SERUM 5.1 mmol/L (3.5-5.1)
[2019-03-29 08:38] VITALS: BP 150/81
[2019-03-29 12:07] VITALS: BP 133/72
[2019-03-29 13:58] VITALS: BP 133/72
== END 2019-03-29 15:45 | disposition home or self-care (01) | DRG 193 ==
LOC: ED 01:12 → DU 04:34
PROVIDERS: Emergency Medicine; ADMIT Internal Medicine Pulmonary Disease
DX: J18.9 Pneumonia, unspecified organism (principal); J96.01 Acute respiratory failure with hypoxia; E11.65 Type 2 diabetes mellitus with hyperglycemia; J44.9 Chronic obstructive pulmonary disease, unspecified; I10 Essential (primary) hypertension; E78.5 Hyperlipidemia, unspecified; N40.0 Benign prostatic hyperplasia without lower urinary tract symptoms; Z87.891 Personal history of nicotine dependence; Z79.84 Long term (current) use of oral hypoglycemic drugs
CPT/HCPCS: 36600; 82962; 83880; 87804; 97116-GP; G0378; J0456; J0696; J1644; J1885; J2920; J2930; J7030; J7050; J7060; J7613; J7620; J7626; J7644; Q0092